=== PATIENT | male | born 1980 | race Caucasian/White ===

== ENCOUNTER 2023-10-25 05:54 | Emergency (ER) | payer OTHER, SELFPAY ==
[2023-10-25] VITALS (11 sets, daily range): BP systolic 110–142; BP diastolic 65–82; PULSE 51–82; RESP 18–20; TEMP 36.6; O2SAT 96–99; BMI 35.2
--- NOTE | 2023-10-25 06:04 | DI.US.S_ITS ---
PROCEDURE: US ABDOMEN LIMITED INDICATIONS: RUQ ABD PAIN X MONTHS TECHNIQUE: Real-time focused scanning was performed of the abdomen, with image documentation. COMPARISON: [facility], CT, CT ABDOMEN PELVIS W CON, 10/25/2023, 6:53. FINDINGS: Liver measures 16.4 cm with mild steatosis. Gallbladder demonstrates no stones. Wall thickness measures 2.0 mm. Common bile duct measures 6.2 mm. IMPRESSION: Mild hepatic steatosis. Dictated by: Nicky Fairbanks M.D. on 10/25/2023 at 10:22 Approved by: Nicky Fairbanks M.D. on 10/25/2023 at 10:23
--- NOTE | 2023-10-25 06:05 | DI.CT.S_ITS ---
PROCEDURE: CT ABDOMEN PELVIS W CON INDICATIONS: RUQ ABD PAIN X MONTHS TECHNIQUE: After the administration of intravenous contrast, axial sections acquired from the lung bases to the pubic symphysis. Coronal and sagittal reformats were performed. For radiation dose reduction, the following was used: automated exposure control, adjustment of mA and/or kV according to patient size. COMPARISON: None available. FINDINGS: Image quality: Diagnostic. Lower Chest: No significant findings. ABDOMEN: Liver: No solid mass. Hepatic steatosis. Gallbladder: No radiopaque gallstones or wall thickening. Biliary ducts: No biliary dilation. Pancreas: No ductal dilation. No peripancreatic fluid collection. Spleen: Size is within normal limits. Adrenal Glands: No adrenal nodules. Kidneys and Ureters: No hydronephrosis. No solid mass. No complex renal cystic lesion which requires follow up. Stomach and Bowel: Normal colonic caliber, without significant wall thickening. Diverticulosis. No diverticulitis demonstrated. Normal appendix. Peritoneum: No abnormal intraperitoneal fluid. No free air. Ventral Wall: No significant ventral hernia. Abdominal Nodes: No retroperitoneal or mesenteric adenopathy by size criteria. Vessels: Aorta and inferior vena cava are normal in size. PELVIS: Pelvic Organs: Unremarkable. Bladder: No stone. Pelvic Nodes: No enlarged lymph nodes. Miscellaneous: No inguinal hernias are seen. Bones: No aggressive osseous abnormality. IMPRESSION: 1. No acute inflammatory process identified. No free fluid. 2. Diverticulosis. 3. Hepatic steatosis. This report is concordant with the overnight preliminary interpretation. Dictated by: Dwaine Faust M.D. on 10/25/2023 at 7:59 Approved by: Dwaine Faust M.D. on 10/25/2023 at 8:06
--- NOTE | 2023-10-25 06:12 | ED_ITS ---
HPI - Abdominal Pain <Selina Brandt MD - Last Filed: 10/27/23 07:30> General Chief Complaint: Abdominal Pain Stated Complaint: liver pain Time Seen by Provider: 10/25/23 05:58 History of Present Illness HPI narrative: 43-year-old male presents for evaluation of right upper quadrant abdominal pain. Patient states that he has had ?off and on? right upper quadrant pain for 9 months. He was evaluated by gastroenterology, but no cause for his pain has been found so far. Since July patient's has increased in frequency and is now constant. Patient states that he was scheduled for right upper quadrant abdominal ultrasound this Wednesday, but because the pain was severe and he could not sleep last night he decided to present to the emergency department for evaluation. No pain medications taken prior to arrival. Patient denies alcohol use, denies cigarette smoking, denies use of illicit street substances. Denies history of IV drug abuse, denies frequent Tylenol use. Patient states that he received an e-mail last week stating that he was supposed to have an endoscopy and colonoscopy today at [facility], but he states that he never received prep instructions or instructions on how to get to the procedure location he cancelled his appointment. Related Data Allergies Allergy/AdvReac Type Severity Reaction Status Date / Time Sulfa (Sulfonamide Allergy Unknown Verified 10/25/23 06:12 Antibiotics) <Selina Leo DO - Last Filed: 10/25/23 19:41> History of Present Illness HPI narrative: 43-year-old male presents for evaluation of right upper quadrant abdominal pain. Patient states that he has had ?off and on? right upper quadrant pain for 9 months. He was evaluated by gastroenterology, but no cause for his pain has been found so far. Since July patient's has increased in frequency and is now constant. Patient states that he was scheduled for right upper quadrant abdominal ultrasound this Wednesday, but because the pain was severe and he could not sleep last night he decided to present to the emergency department for evaluation. No pain medications taken prior to arrival. Patient denies alcohol use, denies cigarette smoking, denies use of illicit street substances. Denies history of IV drug abuse, denies frequent Tylenol use. Patient states that he received an e-mail last week stating that he was supposed to have an endoscopy and colonoscopy today at [facility], but he states that he never received prep instructions or instructions on how to get to the procedure location he cancelled his appointment. Review of Systems <Selina Brandt MD - Last Filed: 10/27/23 07:30> Review of Systems Narrative: see HPI Patient History <Selina Brandt MD - Last Filed: 10/27/23 07:30> Social History Smoking Status: Never smoker Exam <Selina Brandt MD - Last Filed: 10/27/23 07:30> Narrative Exam Narrative: Const: Awake, alert, no acute distress, nontoxic appearing Eyes: PERRL, EOMI, no scleral icterus Cardiac: regular rate, regular rhythm RESP: unlabored, clear bilaterally, no wheezing GI: Soft, right upper quadrant tenderness to deep palpation without rebound or guarding Skin: Warm, Dry, intact, no rashes, no jaundice Neuro: AO x3, CN II-XII grossly intact, moves all extremities Initial Vital Signs Initial Vital Signs: Vital Signs Temperature 97.9 F 10/25/23 06:03 Pulse Rate 82 10/25/23 06:03 Respiratory Rate 18 10/25/23 06:03 Blood Pressure 142/72 H 10/25/23 06:03 Pulse Oximetry 98 10/25/23 06:03 Oxygen Delivery Method Room Air 10/25/23 06:03 <Selina Leo DO - Last Filed: 10/25/23 19:41> Initial Vital Signs Initial Vital Signs: Vital Signs Temperature 97.9 F 10/25/23 06:03 Pulse Rate 82 10/25/23 06:03 Respiratory Rate 18 10/25/23 06:03 Blood Pressure 142/72 H 10/25/23 06:03 Pulse Oximetry 98 10/25/23 06:03 Oxygen Delivery Method Room Air 10/25/23 06:03 Course <Selina Brandt MD - Last Filed: 10/27/23 07:30> Orders Ordered: Discontinued Medications Morphine Sulfate (Morphine 4 Mg/Ml Inj) 4 mg IV NOW ONE Stop: 10/25/23 06:05 Last Admin: 10/25/23 06:16 Dose: 4 mg Documented By: NEETU Vital Signs Vital signs: Vital Signs - 8 hr 10/25/23 06:03 10/25/23 06:13 10/25/23 06:13 Temperature 97.9 F Pulse Rate 82 76 Respiratory Rate 18 19 Blood Pressure 142/72 H 126/82 Pulse Oximetry 98 98 Oxygen Delivery Method Room Air Room Air 10/25/23 06:30 10/25/23 08:00 10/25/23 08:00 Temperature Pulse Rate 73 58 L Respiratory Rate 20 Blood Pressure 129/80 Pulse Oximetry 98 96 Oxygen Delivery Method Room Air Room Air 10/25/23 08:30 10/25/23 08:30 10/25/23 09:00 Temperature Pulse Rate 71 53 L Respiratory Rate Blood Pressure 110/67 Pulse Oximetry 96 96 Oxygen Delivery Method Room Air 10/25/23 09:01 10/25/23 09:01 10/25/23 09:30 Temperature Pulse Rate 68 Respiratory Rate Blood Pressure 122/76 127/70 Pulse Oximetry 98 Oxygen Delivery Method Room Air 10/25/23 09:30 10/25/23 10:00 10/25/23 10:00 Temperature Pulse Rate 51 L 51 L Respiratory Rate Blood Pressure 129/65 Pulse Oximetry 97 97 Oxygen Delivery Method Room Air 10/25/23 10:22 10/25/23 10:22 10/25/23 10:30 Temperature Pulse Rate 73 68 Respiratory Rate Blood Pressure 135/80 Pulse Oximetry 99 98 Oxygen Delivery Method Room Air 10/25/23 10:30 Temperature Pulse Rate Respiratory Rate Blood Pressure 123/74 Pulse Oximetry Oxygen Delivery Method <Selina Leo, - Last Filed: 10/25/23 19:41> Orders Ordered: Discontinued Medications Morphine Sulfate (Morphine 4 Mg/Ml Inj) 4 mg IV NOW ONE Stop: 10/25/23 06:05 Last Admin: 10/25/23 06:16 Dose: 4 mg Documented By: NEETU Vital Signs Vital signs: Vital Signs - 8 hr 10/25/23 06:03 10/25/23 06:13 10/25/23 06:13 Temperature 97.9 F Pulse Rate 82 76 Respiratory Rate 18 19 Blood Pressure 142/72 H 126/82 Pulse Oximetry 98 98 Oxygen Delivery Method Room Air Room Air 10/25/23 06:30 10/25/23 08:00 10/25/23 08:00 Temperature Pulse Rate 73 58 L Respiratory Rate 20 Blood Pressure 129/80 Pulse Oximetry 98 96 Oxygen Delivery Method Room Air Room Air 10/25/23 08:30 10/25/23 08:30 10/25/23 09:00 Temperature Pulse Rate 71 53 L Respiratory Rate Blood Pressure 110/67 Pulse Oximetry 96 96 Oxygen Delivery Method Room Air 10/25/23 09:01 10/25/23 09:01 10/25/23 09:30 Temperature Pulse Rate 68 Respiratory Rate Blood Pressure 122/76 127/70 Pulse Oximetry 98 Oxygen Delivery Method Room Air 10/25/23 09:30 10/25/23 10:00 10/25/23 10:00 Temperature Pulse Rate 51 L 51 L Respiratory Rate Blood Pressure 129/65 Pulse Oximetry 97 97 Oxygen Delivery Method Room Air 10/25/23 10:22 10/25/23 10:22 10/25/23 10:30 Temperature Pulse Rate 73 68 Respiratory Rate Blood Pressure 135/80 Pulse Oximetry 99 98 Oxygen Delivery Method Room Air 10/25/23 10:30 Temperature Pulse Rate Respiratory Rate Blood Pressure 123/74 Pulse Oximetry Oxygen Delivery Method MDM - Abdominal Pain <Selina Brandt MD - Last Filed: 10/27/23 07:30> Differential Diagnosis Differential diagnosis: Likely abdominal pain, acute appendicitis and calculus of kidney Lab Data 10/25/23 06:02 10/25/23 06:02 Labs: Lab Results 10/25/23 10/25/23 Range/Units 06:02 07:49 WBC 5.4 (4.5-11.0) X10^3/uL RBC 5.01 (4.5-5.9) X10^6/uL Hgb 15.7 (13.5-17.5) g/dL Hct 45.3 (41-53) % MCV 90.5 (80-100) fL MCH 31.3 (26-34) PG MCHC 34.6 (30-36) % RDW 13.1 (11.6-14.8) % Plt Count 213 (150-400) X10^3/uL Neut % (Auto) 52.2 (50-75) % Lymph % (Auto) 36.1 (25-40) % [place] % (Auto) 7.6 (3-14) % Eos % (Auto) 3.2 (2-4) % Baso % (Auto) 0.9 (0-2) % Neut # (Auto) 2800 (4308-6262) /uL Lymph # (Auto) 2000 (0598-6792) /uL [place] # (Auto) 400 (0-900) /uL Eos # (Auto) 200 (0-450) /uL Baso # (Auto) 0 (0-100) /uL PT 13.0 H (9.4-12.5) SECONDS INR 1.1 (0.9-1.3) Sodium 140 (137-145) mmol/L Potassium 3.7 (3.4-5.1) mmol/L Chloride 111 H (98-107) mmol/L Carbon Dioxide 22 (22-32) mmol/L BUN 6 L (9-20) mg/dL Creatinine 0.68 (0.66-1.25) mg/dL Estimated GFR > 60 (>60) mL/min BUN/Creatinine Ratio 8.8 (6-22) Glucose 134 H (70-100) mg/dL Lactate 1.3 (0.7-2.1) mmol/L Calcium 9.1 (8.4-10.2) mg/dL Magnesium 1.9 (1.6-2.3) mg/dL Total Bilirubin 1.0 (0.2-1.3) mg/dL AST 41 (17-59) IU/L ALT 56 H (<50) IU/L Alkaline Phosphatase 69 (38-126) U/L Total Protein 7.9 (6.3-8.2) g/dL Albumin 4.2 (3.5-5.0) g/dL Globulin 3.7 (1.7-4.1) g/dL Albumin/Globulin Ratio 1.1 (1.0-2.8) Lipase 90 (23-300) U/L Urine Color Yellow Urine Appearance Clear Urine pH 7.0 (4.5-8.0) Ur Specific [place] 1.010 (1.000-1.035) Urine Protein Negative (Negative) Urine Glucose (UA) Negative (Negative) g/dL Urine Ketones Negative (NEGATIVE) Urine Occult Blood Negative (Negative) Urine Nitrate Negative (Negative) Urine Bilirubin Negative (NEGATIVE) Urine Urobilinogen 0.2 (0.2) E.U./dL Ur Leukocyte Esterase Negative (NEGATIVE) Urine RBC None seen (0-5/HPF) Urine WBC None seen (0-5/HPF) Ur Squamous Epith Cells None seen (0-5/HPF) Urine Bacteria None seen (None) Ur Culture Indicated? Cult not indicated Vol Urine Centrifuged 10ml (spun) MDM Narrative Medical decision making narrative: Months of progressive right upper quadrant abdominal pain. Has had numerous blood tests without cause found for his symptoms. Abdomen is soft, he was right upper quadrant tenderness to palpation, however per patient report he was had constant abdominal pain since July. No scleral icterus or obvious jaundice. Reportedly scheduled for colonoscopy and endoscopy today but appointment has been canceled. We will order labs, pain medications, both CT and ultrasound imaging to assess for emergent causes of patient's right upper quadrant pain. Laboratory work thus far is unremarkable and normal liver enzymes, no leukocytosis, no elevated INR. Pending ultrasound and CT imaging. Care of patient to be signed out to daytime physician. <Selina Leo, - Last Filed: 10/25/23 19:41> Lab Data Labs: Lab Results 10/25/23 10/25/23 Range/Units 06:02 07:49 WBC 5.4 (4.5-11.0) X10^3/uL RBC 5.01 (4.5-5.9) X10^6/uL Hgb 15.7 (13.5-17.5) g/dL Hct 45.3 (41-53) % MCV 90.5 (80-100) fL MCH 31.3 (26-34) PG MCHC 34.6 (30-36) % RDW 13.1 (11.6-14.8) % Plt Count 213 (150-400) X10^3/uL Neut % (Auto) 52.2 (50-75) % Lymph % (Auto) 36.1 (25-40) % [place] % (Auto) 7.6 (3-14) % Eos % (Auto) 3.2 (2-4) % Baso % (Auto) 0.9 (0-2) % Neut # (Auto) 2800 (9872-6595) /uL Lymph # (Auto) 2000 (4126-5636) /uL [place] # (Auto) 400 (0-900) /uL Eos # (Auto) 200 (0-450) /uL Baso # (Auto) 0 (0-100) /uL PT 13.0 H (9.4-12.5) SECONDS INR 1.1 (0.9-1.3) Sodium 140 (137-145) mmol/L Potassium 3.7 (3.4-5.1) mmol/L Chloride 111 H (98-107) mmol/L Carbon Dioxide 22 (22-32) mmol/L BUN 6 L (9-20) mg/dL Creatinine 0.68 (0.66-1.25) mg/dL Estimated GFR > 60 (>60) mL/min BUN/Creatinine Ratio 8.8 (6-22) Glucose 134 H (70-100) mg/dL Lactate 1.3 (0.7-2.1) mmol/L Calcium 9.1 (8.4-10.2) mg/dL Magnesium 1.9 (1.6-2.3) mg/dL Total Bilirubin 1.0 (0.2-1.3) mg/dL AST 41 (17-59) IU/L ALT 56 H (<50) IU/L Alkaline Phosphatase 69 (38-126) U/L Total Protein 7.9 (6.3-8.2) g/dL Albumin 4.2 (3.5-5.0) g/dL Globulin 3.7 (1.7-4.1) g/dL Albumin/Globulin Ratio 1.1 (1.0-2.8) Lipase 90 (23-300) U/L Urine Color Yellow Urine Appearance Clear Urine pH 7.0 (4.5-8.0) Ur Specific [place] 1.010 (1.000-1.035) Urine Protein Negative (Negative) Urine Glucose (UA) Negative (Negative) g/dL Urine Ketones Negative (NEGATIVE) Urine Occult Blood Negative (Negative) Urine Nitrate Negative (Negative) Urine Bilirubin Negative (NEGATIVE) Urine Urobilinogen 0.2 (0.2) E.U./dL Ur Leukocyte Esterase Negative (NEGATIVE) Urine RBC None seen (0-5/HPF) Urine WBC None seen (0-5/HPF) Ur Squamous Epith Cells None seen (0-5/HPF) Urine Bacteria None seen (None) Ur Culture Indicated? Cult not indicated Vol Urine Centrifuged 10ml (spun) Imaging Data CT scan - abdomen/pelvis: Radiologist's Impression: Diffuse hepatic steatosis otherwise unremarkable, small umbilical hernia containing fat. Multilevel spondylotic changes thoracolumbar spine, bone islands in the right femoral head and right ilium. No evidence of colitis, diverticulitis, bowel obstruction, obstructive uropathy or acute appendicitis. US - abdomen: Radiologist's Impression: Close Abdomen/Pelvis CT (Signed) ChristianneDwaine - 10/25/23 Abdomen Ultrasound (Signed) Nicky Fairbanks - 10/25/23 Launch?Image [address] [address] Ultrasound Report Signed Patient: Tyree Barney MR#: [id number] : 1980 Acct:[id number] Age/Sex: 43 / M Date of Service: 10/25/23 Loc: ED Accession Number: [id number] Procedure: US abdomen limited Ordering Provider: Selina Brandt MD PROCEDURE: US ABDOMEN LIMITED INDICATIONS: RUQ ABD PAIN X MONTHS TECHNIQUE: Real-time focused scanning was performed of the abdomen, with image documentation. COMPARISON: [facility], CT, CT ABDOMEN PELVIS W CON, 10/25/2023, 6:53. FINDINGS: Liver measures 16.4 cm with mild steatosis. Gallbladder demonstrates no stones. Wall thickness measures 2.0 mm. Common bile duct measures 6.2 mm. IMPRESSION: Mild hepatic steatosis. Dictated by: Nicky Fairbanks M.D. on 10/25/2023 at 10:22 Approved by: Nicky Fairbanks M.D. on 10/25/2023 at 10:23 MDM Narrative Medical decision making narrative: Months of progressive right upper quadrant abdominal pain. Has had numerous blood tests without cause found for his symptoms. Abdomen is soft, he was right upper quadrant tenderness to palpation, however per patient report he was had constant abdominal pain since July. No scleral icterus or obvious jaundice. Reportedly scheduled for colonoscopy and endoscopy today but appointment has been canceled. We will order labs, pain medications, both CT and ultrasound imaging to assess for emergent causes of patient's right upper quadrant pain. Laboratory work thus far is unremarkable and normal liver enzymes, no leukocytosis, no elevated INR. Pending ultrasound and CT imaging. Care of patient to be signed out to daytime physician. 10/25/2023 Dr. Leo: Patient signed out to myself by Dr. Brandt. Patient's labs were reviewed. Abdominal ultrasound shows mild hepatic steatosis. No other acute changes. CT imaging, shows no acute inflammatory process no free fluid, diverticulosis, hepatic steatosis but with no other major changes. Patient has been having constant abdominal pain since July increased lately. Is following with Gastroenterology. Reportedly scheduled for colonoscopy and endoscopy but had canceled. Patient states he had confusing directions receive his prep until a couple days before the procedure. Patient's workup today overall is reassuring and felt appropriate for discharge. Answered all questions. Discharge Plan Departure Patient Disposition: Home Clinical Impression: Abdominal pain, Hepatic steatosis Activity Restrictions/Additional Instructions: Follow-up with your ship scaler for recheck. Your imaging does show some hepatic steatosis, share this information with your ship scaler they do not already know. Please return for fevers, new or worsening abdominal back or flank pain, persistent vomiting, black or bloody stools, difficulty with urination or other new or concerning changes. Stand Alone Forms: Patient Portal/API
[2023-10-25 06:15] LABS: Add Manual Diff / Slide Review NO; Basophils Absolute Auto 0 /uL (0-100); Basophils Percent Auto 0.9 % (0-2); Eosinophils Absolute Auto 200 /uL (0-450); Eosinophils Percent Auto 3.2 % (2-4); Hematocrit 45.3 % (41-53); Hemoglobin 15.7 g/dL (13.5-17.5); Lymphocytes Absolute Auto 2000 /uL (1100-4500); Lymphocytes Percent Auto 36.1 % (25-40); Mean Corpuscular HGB Conc 34.6 % (30-36); Mean Corpuscular Hemoglobin 31.3 PG (26-34); Mean Corpuscular Volume 90.5 fL (80-100); Monocytes Absolute Auto 400 /uL (0-900); Monocytes Percent Auto 7.6 % (3-14); Neutrophils Absolute Auto 2800 /uL (1500-7000); Neutrophils Percent Auto 52.2 % (50-75); Platelet Count 213 X10^3/uL (150-400); Red Blood Cell Count 5.01 X10^6/uL (4.5-5.9); Red Cell Distribution Width 13.1 % (11.6-14.8); White Blood Cell Count 5.4 X10^3/uL (4.5-11.0)
[2023-10-25] MEDS: MORPHINE 4 MG/ML INJ IV (06:16)
[2023-10-25 06:20] LABS: INR 1.1 (0.9-1.3)
[2023-10-25 06:22] LABS: Alanine Aminotransferase 56 IU/L (<50); Albumin 4.2 g/dL (3.5-5.0); Albumin Globulin Ratio 1.1 (1.0-2.8); Alkaline Phosphatase 69 U/L (38-126); Aspartate Aminotransferase 41 IU/L (17-59); BUN Creatinine Ratio 8.8 (6-22); Blood Urea Nitrogen 6 mg/dL (9-20); Calcium 9.1 mg/dL (8.4-10.2); Carbon Dioxide 22 mmol/L (22-32); Chloride 111 mmol/L (98-107); Estimated Glomerular Filt Rate > 60 mL/min (>60); Globulin 3.7 g/dL (1.7-4.1); Glucose 134 mg/dL (70-100); HEMOLYSIS < 15 (0-50); Lipase 90 U/L (23-300); Magnesium 1.9 mg/dL (1.6-2.3); Potassium 3.7 mmol/L (3.4-5.1); Sodium 140 mmol/L (137-145); Total Protein 7.9 g/dL (6.3-8.2)
[2023-10-25 06:23] LABS: Lactate (Lactic Acid) 1.3 mmol/L (0.7-2.1)
[2023-10-25 08:11] LABS: Appearance Urine UA CLEAR; Bilirubin Urine UA NEGATIVE (NEGATIVE); Color Urine UA YELLOW; Glucose Urine UA NEGATIVE (Negative); Ketones Urine UA NEGATIVE (NEGATIVE); Leukocyte Esterase Urine UA NEGATIVE (NEGATIVE); Nitrite Urine UA NEGATIVE (Negative); Occult Blood Urine UA NEGATIVE (Negative); Protein Urine UA NEGATIVE (Negative); Urobilinogen Urine UA 0.2 E.U./dL (0.2)
[2023-10-25 08:17] LABS: Bacteria Urine None Seen; Culture Indicated Urine Cult Not Indicated; RBC Urine None Seen (0-5/HPF); Squamous Epithelial Cell Urine None Seen (0-5/HPF); Urine Volume 10mL (spun); WBC Urine None Seen (0-5/HPF)
== END 2023-10-25 11:01 | disposition home or self-care (01) ==
PROVIDERS: Emergency Medicine; Emergency Provider Emergency Medicine
DX: R10.11 Right upper quadrant pain (principal); K76.0 Fatty (change of) liver, not elsewhere classified
CPT/HCPCS: 36415; 74177; 76705; 80053; 81001; 83605; 83690; 83735; 85025; 85610; 96374; 99284; J2270; Q9967

== ENCOUNTER 2023-11-08 08:07 | Day surgery (SDC) | payer OTHER, SELFPAY ==
--- NOTE | 2023-11-08 | PATH_ITS ---
[facility] Accession Number: [id number] No. of containers..01 Tissue . 01 Material submitted: . gastrointestinal site - GASTRIC POLYPS . 01 Diagnosis: GASTRIC POLYPS: Fundic gland polyps. No evidence of Helicobacter organisms on H/E stain. Negative for intestinal metaplasia. Negative for dysplasia and malignancy. [facility] 11/12/2023 1509 Local . 01 Electronically signed: . Barak Del Angel MD, PhD, Pathologist NPI- [id number] . 01 Gross description: . GASTRIC POLYPS: Received in formalin are 3 fragment(s) of lima, soft tissue measuring 0.1 x 0.1 x 0.1 cm to 0.2 x 0.2 x 0.2 cm submitted entirely in 1 cassette(s) /DAYDAY 11/09/2023 2258 Local . 01 Pathologist provided ICD-10: Z80.0, K31.7 . 01 CPT . 406738 Specimen Comment: A courtesy copy of this report has been sent to [phone] Performed at: 01 [facility] [address] [place] [address] [address], [place], [place] [id number] MD Barrington Polanco MD Phone: [phone]
[2023-11-08 08:45] VITALS: BP 115/71; PULSE 74; RESP 16; TEMP 36.2; O2SAT 98
[2023-11-08] MEDS: LACTATED RINGERS 1,000 ML 42 ML IV (08:58)
--- NOTE | 2023-11-08 09:12 | P.HP_ITS ---
History of Present Illness History of Present Illness Date Patient Seen: 11/08/23 Time Patient Seen: 09:12 Chief complaint: SDC Narrative: I reviewed the recent note by Dr. Mahan. No significant changes. The patient indicates he takes Nexium about once per week or so but this is typically in reaction to reflux. He has a history of diverticulitis some years ago and a remote family history of colon cancer. EGD and colonoscopy are therefore pursued today. [facility] Social History Smoking Status: Never smoker Meds Home Medications and Allergies Allergies Allergy/AdvReac Type Severity Reaction Status Date / Time Sulfa (Sulfonamide Allergy Unknown Verified 10/25/23 06:12 Antibiotics) Review of Systems Review of Systems ROS: Yes All systems reviewed with the patient and are negative except as otherwise documented Exam Vital Signs (past 8 hours): - 11/08/23 08:45 Temperature 97.2 F L Pulse Rate 74 Respiratory Rate 16 Blood Pressure 115/71 Pulse Oximetry 98 Oxygen Delivery Method Room Air Oxygen Delivery Method Room Air Const General: cooperative HENMT Head: normal to inspection Eyes General: appearance normal, both eyes and all related structures Neck Neck: normal visual inspection Chest Chest: normal inspection of the chest Resp Effort & Inspection: normal respiratory effort Cardio Rate: regular rate GI Inspection: normal to inspection Skin General: no rashes or lesions noted Neuro General: patient alert and patient awake Extrem General: normal to inspection and no pedal edema Psych Appearance: grossly normal Assessment & Plan Assessment & Plan narrative: This is a 43-year-old male with symptoms of refractory reflux and a remote family history of colon cancer. He personally experienced diverticulitis some years ago. EGD and colonoscopy are therefore pursued today.
--- NOTE | 2023-11-08 09:14 | PM.PREOP ---
Pre-operative Note Interval Note History & Physical reviewed/Exam performed by Physician: Yes Changes to H&P: No ASA Class (for procedural sedation): I
[2023-11-08] MEDS: LACTATED RINGERS 1,000 ML 120 ML IV (09:30)
--- NOTE | 2023-11-08 10:16 | PM.OP.EC ---
Operative Date/Time/Diagnoses Date of procedure: 11/08/23 Time of procedure: 10:16 Pre-op diagnosis: Refractory GERD, remote family history of colon cancer, and personal history of diverticulitis. Post-op diagnosis: same Procedure & Clinicians Study performed: EGD with biopsies and colonoscopy Same procedure as scheduled: Yes Indications: Refractory GERD, remote family history of colon cancer, and personal history of diverticulitis. Surgeon: Rome Lira Procedure Notes SCOAP/Timeout: Done Procedure in detail: After the risks and benefits were explained, written and verbal informed consent was obtained. The patient was brought into the procedure room and placed into the left lateral decubitus position. Please see anesthesia notes for sedation details. The scope was introduced into the mouth through the bite block and advanced under direct visualization to the 2nd portion of the duodenum. The scope was slowly withdrawn carefully examining the mucosa for any defects or lesions. Retroflexed views were accomplished in the stomach. The stomach was decompressed, the scope was then removed from the patient who tolerated the procedure well. The patient was then turned around. A digital rectal examination was accomplished. The scope was introduced into the rectum and advanced to the cecum as identified by the appendiceal orifice and ileocecal valve. The terminal ileum was briefly interrogated. The scope was then slowly withdrawn to carefully examine the mucosa for any defects or lesions. Multiple direct views were made through the dentate line for exclusion of pathology. The colon was decompressed. The scope was removed from the patient who tolerated the procedure well. Adult colonoscope Bowel prep adequate Scope withdrawal time: 8 minutes Sedation minutes: 22 Complications: none Impression: 1. Duodenum: No pathology identified from the bulb through to the 2nd portion. 2. Stomach: No ulcers. No outlet obstruction. No mass lesions. There were several scattered small diminutive benign-appearing polyps in the proximal stomach and fundus region. A couple of these were sampled for histopathology with cold forceps. The patient had an obvious hiatal hernia seen and retroflexed views with a Hill valve grade 3. 3. Esophagus: The squamocolumnar junction correlated with the top of the gastric folds. The GEJ was at approximately 41 cm from the incisors. Sliding hiatal hernia was again observed. There was subtle erosive change just proximal to the squamocolumnar junction in a few different areas consistent with LA grade B erosive esophagitis. No stricturing. No mass lesions the remainder of the esophagus was unremarkable. 4. Terminal ileum: This was visually normal. 5. Colon: Patient had scattered diverticulosis all throughout the sigmoid region. No polyps mass lesions or inflammatory features identified throughout. Grade 2 internal hemorrhoids were observed. Endoscopic diagnosis 1. Sliding hiatal hernia 2. LA grade B erosive esophagitis 3. Diminutive gastric polyps 4. Diverticulosis 5. Grade 2 hemorrhoids Post-procedure Plan for aftercare: 1. Await histology. 2. Consider an [id number] course of omeprazole once daily taken 30-60 minutes before the 1st meal of the day. This can be taken for 14 days and then stopped. For any residual or return of symptoms, consider a more proactive approach with 20 mg famotidine once daily thereafter. 3. Repeat colonoscopy in 10 years. Disposition: PACU
[2023-11-08 10:19] VITALS: BP 95/59; PULSE 77; RESP 16; TEMP 36.2; O2SAT 94
[2023-11-08 10:24] VITALS: BP 100/59; PULSE 80; RESP 15; O2SAT 93
[2023-11-08 10:30] VITALS: BP 109/73; PULSE 73; RESP 20; O2SAT 94
[2023-11-08 10:38] VITALS: BP 112/74; PULSE 65; TEMP 36.4; O2SAT 96
--- NOTE | 2023-11-08 11:13 | SUR.PHASEII ---
Pt was given discharge instructions Pt states he understands them. Pt states he feels better . States he is going to get something to eat.
== END 2023-11-08 11:08 | disposition home or self-care (01) ==
PROVIDERS: Referring Provider Internal Medicine Gastroenterology; Visit Provider Internal Medicine Gastroenterology
PROC: 0DJ08ZZ Inspection of Upper Intestinal Tract, Via Natural or Artificial Opening Endoscopic (ICD-10-PCS; CPT 45378; principal; 2023-11-08 09:30)
PROC: 0DJD8ZZ Inspection of Lower Intestinal Tract, Via Natural or Artificial Opening Endoscopic (ICD-10-PCS; CPT 45378; 2023-11-08 09:30)
DX: Z12.11 Encounter for screening for malignant neoplasm of colon (principal); Z80.0 Family history of malignant neoplasm of digestive organs; K21.9 Gastro-esophageal reflux disease without esophagitis; Z87.19 Personal history of other diseases of the digestive system; K44.9 Diaphragmatic hernia without obstruction or gangrene; K31.7 Polyp of stomach and duodenum; K57.30 Diverticulosis of large intestine without perforation or abscess without bleeding; K64.1 Second degree hemorrhoids
CPT/HCPCS: 45378; 43239; J2704